=== PATIENT | female | born 1955 | race Caucasian/White ===

== ENCOUNTER → 2016-06-06 | Outpatient (CLI) | payer OTHER ==
[~2016-06-06] MED LIST: REGADENOSON 0.4 MG/5 ML SYRINGE ONE
== END | disposition home or self-care (01) ==
LOC: CFH 12:08
PROVIDERS: ATTEND Internal Medicine Cardiovascular Disease
DX: I08.3 Combined rheumatic disorders of mitral, aortic and tricuspid valves (principal)
CPT/HCPCS: 78452; 93017; 93306; A9502; J2785

== ENCOUNTER 2019-02-15 10:25 | Outpatient (CLI) | payer OTHER ==
[~2019-02-15 10:25] MED LIST changes: +ASCO1CAP2 PO; +ATOR20TA37 PO; +BIOT25005 PO; +CA C1TAB42 PO; +COCO1000 PO; +ESTR1TAB15 PO; +METH10003 PO; +MULT-752 PO; -REGADENOSON 0.4 MG/5 ML SYRINGE ONE; +TURM500C7 PO
== END 2019-02-15 23:59 | disposition home or self-care (01) ==
LOC: CFH 10:25
PROVIDERS: ATTEND Family Medicine
DX: Z12.31 Encounter for screening mammogram for malignant neoplasm of breast (principal); Z98.82 Breast implant status
CPT/HCPCS: 76641; 77063; 77067

== ENCOUNTER → 2020-04-18 | Outpatient (CLI) | payer OTHER | END | disposition home or self-care (01) | LOC: CFH 12:26 | PROVIDERS: ATTEND Family Medicine | DX: Z12.31 Encounter for screening mammogram for malignant neoplasm of breast (principal) | CPT/HCPCS: 77063; 77067 ==